=== PATIENT | female | born 1970 | race African-American/Black ===

== ENCOUNTER 2018-10-31 10:23 | Emergency (ER) | payer MEDICAID, OTHER ==
[~2018-10-31] VITALS: Ht 162.6 cm; Wt 70.3 kg
[2018-10-31 11:11] VITALS: BP 131/91
== END 2018-10-31 11:56 | disposition home or self-care (01) ==
LOC: ER 10:30
DX: S90.112A Contusion of left great toe without damage to nail, initial encounter (principal); Z91.013 Allergy to seafood; Y93.01 Activity, walking, marching and hiking; W18.39XA Other fall on same level, initial encounter; Y99.8 Other external cause status; Y92.89 Other specified places as the place of occurrence of the external cause
CPT/HCPCS: 73660

== ENCOUNTER 2019-05-14 13:16 | Emergency (ER) | payer MEDICAID ==
[~2019-05-14] VITALS: Ht 162.6 cm; Wt 70.3 kg
[2019-05-14 15:14] VITALS: BP 116/72
== END 2019-05-14 15:20 | disposition home or self-care (01) ==
LOC: ER 13:16
DX: M94.0 Chondrocostal junction syndrome [Tietze] (principal); K21.9 Gastro-esophageal reflux disease without esophagitis
CPT/HCPCS: 71046; 93005

== ENCOUNTER 2020-07-12 13:24 | Emergency (ER) | payer MEDICAID ==
[~2020-07-12] VITALS: Ht 162.6 cm; Wt 72.6 kg
[2020-07-12] MEDS ORDERED: SODIUM CHLORIDE 0.9% 1,000 ML IV ONE (13:45)
[2020-07-12 14:56] VITALS: BP 134/89
[2020-07-12 15:37] LABS: Basophils # (auto) 0 10 ^3/uL (0-0.2); Basophils % (auto) 0.3 % (0.0-2.0); Eosinophils # (auto) 0 10 ^3/uL (0-0.8); Hemoglobin 13.7 g/dL (12.2-16.2); Lymphocytes # (auto) 1.1 10 ^3/uL (0.4-5.4); Lymphocytes % (auto) 22.1 % (10.0-50.0); Mean Corpuscular Hgb Conc. 32.7 g/dL (32.0-36.0); Mean Corpuscular Volume 82.7 fL (80.0-100.0); Monocytes # (auto) 0.3 10 ^3/uL (0-1.3); Monocytes % (auto) 6.7 % (0.0-12.0); Neutrophils # (auto) 3.5 10 ^3/uL (1.6-8.6); Neutrophils % (auto) 70.9 % (37.0-80.0); Platelet Count (auto) 193 10^3/uL (140-450); Red Blood Cells 5.08 10^6/uL (4.0-5.20); White Blood Cell 4.9 10^3/uL (4.4-10.8)
[2020-07-12 15:58] LABS: Albumin 3.5 g/dL (3.4-5.0); Calcium 8.8 mg/dL (8.5-10.1)
[2020-07-12 16:04] LABS: BUN/Creatinine Ratio 12.6; Bilirubin, Total 0.3 mg/dL (0.2-1.0); Total Protein 8.3 g/dL (6.4-8.2)
[2020-07-12] MEDS ORDERED: POTASSIUM EFFERVESENT TAB 25 MEQ ONE (16:56)
[2020-07-12] MEDS ORDERED: POTASSIUM CHL 20 Meq TABLET PO ONE (17:00)
[2020-07-12] MEDS ORDERED: POTASSIUM CHL 10 Meq TABLET PO ONE (17:00)
[2020-07-12] MEDS ORDERED: POTASSIUM EFFERVESENT TAB 25 MEQ PO ONE (17:15)
== END 2020-07-12 17:07 | disposition home or self-care (01) ==
LOC: ER 13:24
DX: U07.1 COVID-19 (principal); J18.9 Pneumonia, unspecified organism; E86.0 Dehydration
CPT/HCPCS: 36415; 71045; 80053; 84484; 85025; 87426